=== PATIENT | female | born 1995 ===

== ENCOUNTER 2018-05-19 21:00 | Emergency (ER) | payer MEDICAID, OTHER ==
[2018-05-19 22:33] VITALS: TEMP 98.1
--- NOTE | 2018-05-19 23:00 | ED PDOC ---
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 Pt. stated that she feels the suprapubic cramp on and off, had dysuria with white discharge, no fever or chills, no flank pain, no fever or chills, no numbness or tingling, no other medical or psychological complaints. <Rahul Kim - Last Filed: 05/20/18 00:02> <Dakota Sprague - Last Filed: 05/20/18 00:16> - General Chief Complaint: Abdominal Pain Time Seen by Provider: 05/19/18 21:04 Past Medical History - Provider Review Nursing Documentation Reviewed: Yes - Psychiatric Hx Substance Use: No - Anesthesia Hx Anesthesia: No Hx Anesthesia Reactions: No Hx Malignant Hyperthermia: No <Rahul Kim - Last Filed: 05/20/18 00:02> Family/Social History - Physician Review Nursing Documentation Reviewed: Yes Family/Social History: Unknown Family HX Smoking Status: Never Smoked Hx Alcohol Use: No Hx Substance Use: No <Rahul Kim - Last Filed: 05/20/18 00:02> Allergies/Home Meds <Rahul Kim - Last Filed: 05/20/18 00:02> <Dakota Sprague - Last Filed: 05/20/18 00:16> Allergies/Adverse Reactions: Allergies No Known Allergies Allergy (Verified 05/19/18 22:19) Review of Systems - Review of Systems Constitutional: absent: Fatigue, Fevers Eyes: absent: Vision Changes ENT: absent: Hearing Changes Respiratory: absent: SOB, Cough Cardiovascular: absent: Chest Pain Gastrointestinal: absent: Abdominal Pain, Constipation, Diarrhea, Nausea, Vomiting Genitourinary Female: Dysuria, Vaginal Discharge Musculoskeletal: absent: Arthralgias, Back Pain Skin: absent: Rash, Pruritis Psychiatric: absent: Anxiety, Depression, Suicidal Ideation <Rahul Kim - Last Filed: 05/20/18 00:02> Physical Exam Vital Signs Reviewed: Yes Vital Signs Temp Pulse Resp BP Pulse Ox 05/19/18 22:32 98.1 F 80 20 116/67 99 Temperature: Afebrile Blood Pressure: Normal Pulse: Regular Respiratory Rate: Normal Appearance: Positive for: Well-Appearing, Non-Toxic, Comfortable Pain Distress: None Mental Status: Positive for: Alert and Oriented X 3 - Systems Exam Head: Present: Atraumatic, Normocephalic Pupils: Present: PERRL Extroacular Muscles: Present: EOMI Conjunctiva: Present: Normal Mouth: Present: Moist Mucous Membranes Neck: Present: Normal Range of Motion Respiratory/Chest: Present: Clear to Auscultation, Good Air Exchange. No: Respiratory Distress, Accessory Muscle Use Cardiovascular: Present: Regular Rate and Rhythm, Normal S1, S2. 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 No: Vaginal Bleeding, Vaginal Lesions, Adenexal Tenderness, Adenexal Mass, Cervical Motion Tendernes, Odor Back: Present: Normal Inspection. No: CVA Tenderness, Midline Tenderness, Paraspinal Tenderness, Pain with Leg Raise, Decubitus Ulcer Upper Extremity: Present: Normal Inspection. No: Cyanosis, Edema Lower Extremity: Present: Normal Inspection. No: Edema Neurological: Present: GCS=15, CN II-XII Intact, Speech Normal, Motor Func Grossly Intact, Gait Normal, Memory Normal Skin: Present: Warm, Dry, Normal Color. No: Rashes Psychiatric: Present: Alert, Oriented x 3, Normal Insight, Normal Concentration <Rahul Kim - Last Filed: 05/20/18 00:02> Vital Signs Temp Pulse Resp BP Pulse Ox 05/19/18 22:32 98.1 F 80 20 116/67 99 <Dakota Sprague - Last Filed: 05/20/18 00:16> Medical Decision Making ED Course and Treatment: 05/19/18 23:06 -poc -UA -Observe and reassess 05/19/18 23:56 -Urine hcg is negative -UA show no UTI -Pt. stated that she doesn't have STD, refused prophylatic or STD treatment for gonorrhea/chlyamdydia and refused STD test as well. -Diflucan ordered -Pt. has no pain now -Discharge home with education on followup with your own pmd and obgyn within 2 days, return to the ER for any new or worsening signs or symptoms. <Rahul Kim - Last Filed: 05/20/18 00:02> - Lab Interpretations Lab Results: Lab Results 05/19/18 11:25: Urine Color Yellow, Urine Appearance Clear, Urine pH 6.5, Ur Specific [place] 1.010, Urine Protein Negative, Urine Glucose (UA) Negative, Urine Ketones Negative, Urine Blood Negative, Urine Nitrate Negative, Urine Bilirubin Negative, Urine Urobilinogen 0.2, Ur Leukocyte Esterase Negative - Medication Orders Current Medication Orders: Discontinued Medications Fluconazole (Diflucan) 150 mg PO STAT STA; Protocol Stop: 05/19/18 23:56 <Dakota Sprague - Last Filed: 05/20/18 00:16> - PA / DIE CUTTER APPRENTICE / Resident Statement CHRIS has reviewed & agrees with the documentation as recorded. <Rahul Kim - Last Filed: 05/20/18 00:02> - PA / DIE CUTTER APPRENTICE / Resident Statement CHRIS has reviewed & agrees with the documentation as recorded. <Dakota Sprague - Last Filed: 05/20/18 00:16> Disposition/Present on Arrival - Present on Arrival Any Indicators Present on Arrival: No History of DVT/PE: No History of Uncontrolled Diabetes: No Urinary Catheter: No History of Decub. Ulcer: No History Surgical Site Infection Following: None - Disposition Have Diagnosis and Disposition been Completed?: Yes Disposition Time: 23:56 Patient Plan: Discharge <Rahul Kim - Last Filed: 05/20/18 00:02> <Dakota Sprague - Last Filed: 05/20/18 00:16> - Disposition Diagnosis: Vaginal candidiasis Disposition: HOME/ ROUTINE Patient Problems: Current Active Problems Problem Status Onset Vaginal candidiasis Acute Condition: GOOD Additional Instructions: -Discharge home with education on followup with your own pmd and obgyn within 2 days, return to the ER for any new or worsening signs or symptoms. Referrals: PCP,NO [Primary Care Provider] - Follow up with primary Chas Armstrong [Medical Doctor] - Follow up with primary Forms: [employer] ([place]), WORK NOTE
[2018-05-19 23:39] LABS: PH,URINE 6.5 (4.7-8.0); URINE APPEARANCE CLEAR (CLEAR); URINE BILIRUBIN NEGATIVE (NEGATIVE); URINE BLOOD NEGATIVE (NEGATIVE); URINE COLOR YELLOW (YELLOW); URINE GLUCOSE (UA) NEGATIVE (NEGATIVE); URINE LEUKOCYTE ESTERASE NEGATIVE Leu/uL (NEGATIVE); URINE PROTEIN NEGATIVE mg/dL (<30 mg/dL); URINE UROBILINOGEN 0.2 E.U./dL (<1 E.U./dL)
[2018-05-20 00:30] VITALS: BP 115/68; PULSE 78; RESP 18; O2SAT 100
== END 2018-05-20 00:31 | disposition home or self-care (01) ==
LOC: ED 21:00
DX: B37.3 Candidiasis of vulva and vagina (principal)

== ENCOUNTER 2018-05-21 18:12 | Emergency (ER) | payer MEDICAID, OTHER ==
[2018-05-22 05:39] VITALS: BMI 26.2
== END 2018-05-21 18:43 | disposition left against medical advice (07) ==
LOC: ED 18:12
DX: Z02.89 Encounter for other administrative examinations (principal); R10.30 Lower abdominal pain, unspecified

== ENCOUNTER 2018-05-21 23:09 | Observation (INO) | payer MEDICAID, OTHER ==
--- NOTE | 2018-05-22 01:31 | ED PDOC ---
Arrival/HPI - General Historian: Patient - History of Present Illness Narrative History of Present Illness (Text): 05/22/18 01:26 23 year old female, with no significant past medical history, presents to the emergency department with suprapubic RLQ pain, since Monday. Patient was seen in the emergency department 2 days ago for symptoms and for thick white vaginal discharge. Patient was discharged with diflucan for yeast infection. Patient states today the pain became worse, and painful when walking. Patient also states she had some nausea and vomiting today. Patient denies any recent sexual activity. Patient also denies any dysuria, fevers, anorexia, vaginal bleeding, or any other complaints. Time/Duration: < week (4 days) Symptom Onset: Gradual Symptom Course: Worsening <Marichuy Lopez PA-C - Last Filed: 05/22/18 01:26> <Dakota Sprague - Last Filed: 05/22/18 05:30> - General Chief Complaint: Abdominal Pain Time Seen by Provider: 05/21/18 23:50 Past Medical History - Provider Review Nursing Documentation Reviewed: Yes - Psychiatric Hx Substance Use: No - Anesthesia Hx Anesthesia: No Hx Anesthesia Reactions: No Hx Malignant Hyperthermia: No <Marichuy Lopez PA-C - Last Filed: 05/22/18 01:26> Family/Social History - Physician Review Nursing Documentation Reviewed: Yes Family/Social History: No Known Family HX Smoking Status: Never Smoked Hx Alcohol Use: No Hx Substance Use: No <Marichuy Lopez PA-C - Last Filed: 05/22/18 01:26> Allergies/Home Meds <Marichuy Lopez PA-C - Last Filed: 05/22/18 01:26> <Dakota Sprague - Last Filed: 05/22/18 05:30> Allergies/Adverse Reactions: Allergies No Known Allergies Allergy (Verified 05/21/18 23:41) Home Medications: Home Meds Medication Instructions Recorded Confirmed RX: No Known Home Med 05/22/18 05/22/18 Review of Systems - Physician Review All systems were reviewed & negative as marked: Yes - Review of Systems Constitutional: absent: Fevers Gastrointestinal: Abdominal Pain, Nausea, Vomiting. absent: Anorexia Genitourinary Female: Vaginal Discharge. absent: Dysuria, Vaginal Bleeding <Marichuy Lopez PA-C - Last Filed: 05/22/18 01:26> Physical Exam Vital Signs Reviewed: Yes Vital Signs Temp Pulse Resp BP Pulse Ox 05/22/18 00:45 97.7 F 74 17 120/50 L 100 Temperature: Afebrile Blood Pressure: Hypotensive Pulse: Regular Respiratory Rate: Normal Appearance: Positive for: Well-Appearing, Non-Toxic, Comfortable Pain Distress: None Mental Status: Positive for: Alert and Oriented X 3 - Systems Exam Head: Present: Atraumatic, Normocephalic Pupils: Present: PERRL Extroacular Muscles: Present: EOMI Conjunctiva: Present: Normal Mouth: Present: Moist Mucous Membranes Neck: Present: Normal Range of Motion Respiratory/Chest: Present: Clear to Auscultation, Good Air Exchange. No: Respiratory Distress, Accessory Muscle Use Cardiovascular: Present: Regular Rate and Rhythm, Normal S1, S2. No: Murmurs Abdomen: Present: Tenderness (Mild lower abdominal tenderness). No: Distention, Peritoneal Signs, Guarding, McBurney's Point Tender, Rovsing's Sign Present Back: Present: Normal Inspection Upper Extremity: Present: Normal Inspection. No: Cyanosis, Edema Lower Extremity: Present: Normal Inspection. No: Edema Neurological: Present: GCS=15, CN II-XII Intact, Speech Normal Skin: Present: Warm, Dry, Normal Color. No: Rashes Psychiatric: Present: Alert, Oriented x 3, Normal Insight, Normal Concentration <Marichuy Lopez PA-C - Last Filed: 05/22/18 01:26> Vital Signs Temp Pulse Resp BP Pulse Ox 05/22/18 00:45 97.7 F 74 17 120/50 L 100 <Dakota Sprague - Last Filed: 05/22/18 05:30> Medical Decision Making ED Course and Treatment: 05/22/18 01:35 Impression: 23 year old female presents with lower abdominal pain and vaginal discharge. Plan: -- CT ABD & Pelvis -- CMP, Lipase, Mg -- CBC -- Chlamydia testing -- Toradol -- Urine culture -- Urinalysis -- Reassess and disposition Prior Visits: Notes and results from previous visits were reviewed. Patient had a pelvic exam on Monday05/19/18 and was diagnosed with vaginal candidiasis. Patient had refused any urine STD testing Progress Notes: - RAD Interpretation Radiology Orders: 05/22/18 00:48 ABD & PELVIS IV CONTRAST ONLY [CT] Stat - Medication Orders Current Medication Orders: Discontinued Medications Ketorolac Tromethamine (Toradol) 30 mg IVP STAT STA Stop: 05/22/18 00:47 <Marichuy Lopez PA-C - Last Filed: 05/22/18 01:26> ED Course and Treatment: 05/22/18 03:53 Patient was reexamined with localized tenderness to the RLQ persistently. CT study consistent with appendicolith although no inflammatory changes. Patient, however,given persistent localized tenderness will need further evaluation for possibly early appendicitis. vice president of instruction to evaluate. vice president safety was spoken to. House doctor, Dr. Huerta, was spoken to, accepts patient to the hospitalist service at this time. - Lab Interpretations Lab Results: 05/22/18 01:34 05/22/18 01:34 Lab Results 05/22/18 01:34: Sodium 139, Potassium 4.5, Chloride 103, Carbon Dioxide 30, Anion Gap 10, BUN 14, Creatinine 0.6 L, Est GFR ( Amer) > 60, Est GFR (Non-Af Amer) > 60, Random Glucose 109, Calcium 9.2, Magnesium 2.0, Total Bilirubin 0.3, AST 19, ALT 28, Alkaline Phosphatase 92, Total Protein 7.4, Albumin 4.2, Globulin 3.3, Albumin/Globulin Ratio 1.3, Lipase 30 05/22/18 01:34: PT 11.6, INR 1.02, APTT 30.2 05/22/18 01:34: WBC 8.6, RBC 4.03, Hgb 11.8 L, Hct 36.5, MCV 90.6, MCH 29.3, MCHC 32.3, RDW 12.9, Plt Count 255, MPV 9.9, Gran % 60.5, Lymph % (Auto) 31.9, [place] % (Auto) 6.0, Eos % (Auto) 1.3 L, Baso % (Auto) 0.3, Gran # 5.20, Lymph # (Auto) 2.8, [place] # (Auto) 0.5, Eos # (Auto) 0.1, Baso # (Auto) 0.03 05/22/18 00:50: Urine Color Yellow, Urine Appearance Clear, Urine pH 6.5, Ur Specific [place] 1.020, Urine Protein Negative, Urine Glucose (UA) Negative, Urine Ketones Negative, Urine Blood Negative, Urine Nitrate Negative, Urine Bilirubin Negative, Urine Urobilinogen 0.2, Ur Leukocyte Esterase Negative - RAD Interpretation Radiology Orders: 05/22/18 00:48 ABD & PELVIS IV CONTRAST ONLY [CT] Stat - Medication Orders Current Medication Orders: Discontinued Medications Ketorolac Tromethamine (Toradol) 30 mg IVP STAT STA Stop: 05/22/18 00:47 Last Admin: 05/22/18 01:35 Dose: 30 mg MAR Pain Assessment Document 05/22/18 01:35 OCS (Rec: 05/22/18 01:36 OCS [facility]) Pain Reassessment Is this a pain reassessment? No Sleep Is patient sleeping during reassessment? No Presence of Pain Presence of Pain Yes Pain Scale Used Protocol: PSCALES Pain Scale Used Numeric Location Left, Right or Bilateral Bilateral Upper or Lower Lower Pain Location Body Site Abdomen Back Description Description Constant Intensity of Pain at present 10 Pain Behavior Facial Grimacing Aggravating Factors ADL's IVP Administration Document 05/22/18 01:35 OCS (Rec: 05/22/18 01:36 OCS [facility]) Charges for Administration # of IVP Administrations 1 <Dakota Sprague - Last Filed: 05/22/18 05:30> - Scribe Statement The provider has reviewed the documentation as recorded by the Miguel Olivo Provider Scribe Attestation: All medical record entries made by the Scribkevin were at my direction and personally dictated by me. I have reviewed the chart and agree that the record accurately reflects my personal performance of the history, physical exam, medical decision making, and the department course for this patient. I have also personally directed, reviewed, and agree with the discharge instructions and d isposition. <Marichuy Lopez PA-C - Last Filed: 05/22/18 01:26> Disposition/Present on Arrival - Present on Arrival History of DVT/PE: No History of Uncontrolled Diabetes: No Urinary Catheter: No History of Decub. Ulcer: No History Surgical Site Infection Following: None <Marichuy Lopez PA-C - Last Filed: 05/22/18 01:26> - Present on Arrival Any Indicators Present on Arrival: No History of DVT/PE: No History of Uncontrolled Diabetes: No Urinary Catheter: No History of Decub. Ulcer: No History Surgical Site Infection Following: None - Disposition Have Diagnosis and Disposition been Completed?: Yes Disposition Time: 03:50 <Dakota Sprague - Last Filed: 05/22/18 05:30> - Disposition Diagnosis: RLQ abdominal pain Disposition: HOSPITALIZED Patient Problems: Current Active Problems Problem Status Onset RLQ abdominal pain Acute Condition: STABLE
[2018-05-22 01:57] LABS: BASO # 0.03 K/mm3 (0.0-2.0); BASO % 0.3 % (0.0-3.0); EOS # 0.1 (0.0-0.7); EOS % 1.3 % (1.5-5.0); GRAN # 5.2 (1.4-6.5); GRAN % 60.5 % (50.0-68.0); HEMOGLOBIN 11.8 g/dL (12.0-16.0); LYMPH # 2.8 (1.2-3.4); LYMPH % 31.9 % (22.0-35.0); MEAN CELL VOLUME 90.6 fl (80.0-105.0); MEAN CORPUSCULAR HEMOGLOBIN 29.3 pg (25.0-35.0); MEAN CORPUSCULAR HGB CONC 32.3 g/dl (31.0-37.0); MEAN PLATELET VOLUME 9.9 fl (7.0-11.0); MONO # 0.5 (0.1-0.6); RBC 4.03 10^6/uL (3.5-6.1); RED CELL DISTRIBUTION WIDTH 12.9 % (11.5-14.5); WHITE BLOOD COUNT 8.6 10^3/uL (4.5-11.0)
[2018-05-22 01:57] LABS: PH,URINE 6.5 (4.7-8.0); URINE BILIRUBIN NEGATIVE (NEGATIVE); URINE BLOOD NEGATIVE (NEGATIVE); URINE GLUCOSE (UA) NEGATIVE (NEGATIVE); URINE LEUKOCYTE ESTERASE NEGATIVE Leu/uL (NEGATIVE); URINE PROTEIN NEGATIVE mg/dL (<30 mg/dL); URINE UROBILINOGEN 0.2 E.U./dL (<1 E.U./dL)
[2018-05-22 02:00] LABS: URINE APPEARANCE CLEAR (CLEAR); URINE COLOR YELLOW (YELLOW)
[2018-05-22 02:03] LABS: INR 1.02; PARTIAL THROMBOPLASTIN TIME 30.2 Seconds (25.1-36.5); PROTHROMBIN TIME 11.6 SECONDS (9.4-12.5)
[2018-05-22 02:06] LABS: ALB/GLOB RATIO 1.3 (1.1-1.8); ALBUMIN 4.2 g/dL (3.0-4.8); ALT/SGPT 28 U/L (7-56); AST/SGOT 19 U/L (14-36); BLOOD UREA NITROGEN 14 mg/dL (7-21); CALCIUM 9.2 mg/dL (8.4-10.5); GFR NON-AFRICAN AMERICAN > 60; LIPASE 30 U/L (23-300)
[2018-05-22] MEDS ORDERED: Iohexol 350 MG/100 ML VIAL ONE (02:16)
--- NOTE | 2018-05-22 04:51 | CP.PCM.HP ---
<NagiArabella logan - Last Filed: 05/22/18 05:18> History of Present Illness - History of Present Illness History of Present Illness: Arabella Lazar PGY-1 Medicine H&P Note for Dr. Huerta: CC: RLQ abd pain Pt is a 23 yo F with no significant pmhx who presents to the ED for RLQ abd pain. Pt states that she started noticing this pain on monday and it was associated with a heavy white vaginal discharge. She presented to the ED 2 days ago and she was treated with diflucan and d/thompson. Pt states that after being treated the pain worsened so she returned to the ED. Pt also reports that this AM she had an episode of non-bloody non-billious vomiting. She states that she continues to be nauseous and has no appetite at this time. Pt reports that her pain is rated 8/10 in intensity and localizes the pain to the suprapubic region of her abdomen. She states that this pain is similar to an infection that she had 7 years ago that her and her partner were both treated for simultaneously. She reports that she does have pubic pain when she is ambulating and that the pain radiates down to her groin. At this time she denies fevers, chills, headaches, lightheadedness, dizziness, chest pain, palpitations, SOB, cough, wheezing, flank pain, constipation, diarrhea dysuria, hematuria or frequency. She only admits to suprapubic abdominal pain, and nausea, vomiting. Pmhx: Denies Pshx: Denies Meds: Denies All: NKDA Social: Denies any smoking hx, etoh or illicit drug use Fam Hx: Maternal grandmother: Uterine ca PMD: None Pharm: None Present on Admission - Present on Admission Any Indicators Present on Admission: No Review of Systems - Review of Systems Review of Systems: 12 point ROS is reviewed and negative except where noted in HPI above. Past Patient History - Past Social History Smoking Status: Never Smoked - PSYCHIATRIC Hx Substance Use: No - SURGICAL HISTORY Hx Surgeries: No - ANESTHESIA Hx Anesthesia: No Hx Anesthesia Reactions: No Hx Malignant Hyperthermia: No Meds Allergies/Adverse Reactions: Allergies Allergy/AdvReac Type Severity Reaction Status Date / Time No Known Allergies Allergy Verified 05/21/18 23:41 Physical Exam - Constitutional Appears: Well, Non-toxic, No Acute Distress, Other (uncomfortable) - Head Exam Head Exam: ATRAUMATIC, NORMAL INSPECTION, NORMOCEPHALIC - Eye Exam Eye Exam: EOMI, Normal appearance, PERRL - Respiratory Exam Respiratory Exam: Clear to Auscultation Bilateral, NORMAL BREATHING PATTERN. absent: Accessory Muscle Use, Decreased Breath Sounds, Rales, Rhonchi, Wheezes, Respiratory Distress, Stridor - Cardiovascular Exam Cardiovascular Exam: RRR, +S1, +S2. absent: Gallop, Rubs, Systolic Murmur - GI/Abdominal Exam GI & Abdominal Exam: Normal Bowel Sounds, Soft, Tenderness (present in the suprapubic region of the abdomen, there is negative mcburneys point, negative psoas sign, negative rovsings sign on exam. ). absent: Distended, Firm, Guarding, Hernia - Extremities Exam Extremities exam: Positive for: normal capillary refill, normal inspection, pedal pulses present. Negative for: pedal edema, tenderness - Back Exam Back exam: NORMAL INSPECTION. absent: CVA tenderness (L), CVA tenderness (R) - Neurological Exam Neurological exam: Alert, Oriented x3 - Psychiatric Exam Psychiatric exam: Normal Affect, Normal Mood - Skin Skin Exam: Dry, Normal Color, Warm Results - Vital Signs Recent Vital Signs: Last Vital Signs Temp 97.7 F 05/22/18 00:45 Pulse 84 05/22/18 04:37 Resp 18 05/22/18 04:37 BP 107/66 05/22/18 04:37 Pulse Ox 100 05/22/18 04:37 - Labs Result Diagrams: 05/22/18 01:34 05/22/18 01:34 Labs: Laboratory Results - last 24 hr 05/22/18 05/22/18 05/22/18 00:50 01:34 01:34 WBC 8.6 RBC 4.03 Hgb 11.8 L Hct 36.5 MCV 90.6 MCH 29.3 MCHC 32.3 RDW 12.9 Plt Count 255 MPV 9.9 Gran % 60.5 Lymph % (Auto) 31.9 [place] % (Auto) 6.0 Eos % (Auto) 1.3 L Baso % (Auto) 0.3 Gran # 5.20 Lymph # (Auto) 2.8 [place] # (Auto) 0.5 Eos # (Auto) 0.1 Baso # (Auto) 0.03 PT 11.6 INR 1.02 APTT 30.2 Sodium Potassium Chloride Carbon Dioxide Anion Gap BUN Creatinine Est GFR ( Amer) Est GFR (Non-Af Amer) Random Glucose Calcium Magnesium Total Bilirubin AST ALT Alkaline Phosphatase Total Protein Albumin Globulin Albumin/Globulin Ratio Lipase Urine Color Yellow Urine Appearance Clear Urine pH 6.5 Ur Specific [place] 1.020 Urine Protein Negative Urine Glucose (UA) Negative Urine Ketones Negative Urine Blood Negative Urine Nitrate Negative Urine Bilirubin Negative Urine Urobilinogen 0.2 Ur Leukocyte Esterase Negative 05/22/18 01:34 WBC RBC Hgb Hct MCV MCH MCHC RDW Plt Count MPV Gran % Lymph % (Auto) [place] % (Auto) Eos % (Auto) Baso % (Auto) Gran # Lymph # (Auto) [place] # (Auto) Eos # (Auto) Baso # (Auto) PT INR APTT Sodium 139 Potassium 4.5 Chloride 103 Carbon Dioxide 30 Anion Gap 10 BUN 14 Creatinine 0.6 L Est GFR ( Amer) > 60 Est GFR (Non-Af Amer) > 60 Random Glucose 109 Calcium 9.2 Magnesium 2.0 Total Bilirubin 0.3 AST 19 ALT 28 Alkaline Phosphatase 92 Total Protein 7.4 Albumin 4.2 Globulin 3.3 Albumin/Globulin Ratio 1.3 Lipase 30 Urine Color Urine Appearance Urine pH Ur Specific [place] Urine Protein Urine Glucose (UA) Urine Ketones Urine Blood Urine Nitrate Urine Bilirubin Urine Urobilinogen Ur Leukocyte Esterase Assessment & Plan - Assessment and Plan (Free Text) Assessment: Pt is a 23 yo F with no significant pmhx who presents to the ED for RLQ abd pain. Pts CT abd/pelvis prelim read showed possible apopendicolith, but without any inflammatory changes, f/u official read. Plan: 1. RLQ pain of unknown etiology: - Likely 2/2 recent vaginal candidiasis infection and pt has ruptured follicle on CT imaging. - CT abd/ pelvis was read as appendicolith without signs of inflammatory changes - IVF NS @ 150/hr - NPO - Rocephin - Flagyl - f/u official read of CT abd/pelvis in AM - Zofran PRN 2. Pelvic pain: - Pelvis u/s - Vaginal u/s - CHAPERON consult - IVF - Pt has already recieved diflucan on ED visit 2 days prior 3. PPX: GI: Protonix DVT: SCDs Case seen and discussed with Dr. Bradley Lazar PGY-1 <Breanne Huerta - Last Filed: 05/23/18 06:36> Results - Vital Signs Recent Vital Signs: Last Vital Signs Temp 97.8 F 05/22/18 18:00 Pulse 99 H 05/22/18 18:00 Resp 20 05/22/18 18:00 BP 101/64 05/22/18 18:00 Pulse Ox 97 05/22/18 18:00 - Labs Result Diagrams: 05/22/18 01:34 05/22/18 01:34 Attending/Attestation - Attestation I have personally seen and examined this patient.: Yes I have fully participated in the care of the patient.: Yes I have reviewed all pertinent clinical information: Yes
[2018-05-22] MEDS ORDERED: Sodium Chloride 0.9% 1,000 ML IV SCH ×2 (05:15)
[2018-05-22 05:39] VITALS: RESP 20; BMI 26.2
[2018-05-22 05:50] VITALS: TEMP 97.8
[2018-05-22] MEDS ORDERED: metroNIDAZOLE IV 500 mg/100 ml 500 MG/100 ML BAG IVPB SCH (06:00)
[2018-05-22] MEDS ORDERED: Pantoprazole 40 mg EC Tab PO SCH (06:00)
[2018-05-22] MEDS ORDERED: cefTRIAXone 1 gm 1 GM/100 ML BAG IVPB SCH (10:00)
--- NOTE | 2018-05-22 10:50 | CT ---
Date of service: 05/22/2018 PROCEDURE: CT Abdomen and Pelvis with contrast HISTORY: RLQ pain COMPARISON: None. TECHNIQUE: Following the intravenous administration of iodinated contrast material, a CT examination of the abdomen and pelvis performed from the domes of the diaphragms to the symphysis pubis with reformatted datasets provided in axial, sagittal and coronal planes. Oral contrast was not administered as per referring physician request. Coronal and sagittal reformats were generated. Contrast dose: Omnipaque 350, 100 cc Radiation dose: Total exam DLP = 334.43 mGy-cm. This CT exam was performed using one or more of the following dose reduction techniques: Automated exposure control, adjustment of the mA and/or kV according to patient size, and/or use of iterative reconstruction technique. FINDINGS: LOWER THORAX: Bilateral basilar dependent atelectasis identified with lung bases otherwise clear. The abdomen, LIVER: Unremarkable. No gross lesion or ductal dilatation. GALLBLADDER AND BILE DUCTS: Unremarkable. PANCREAS: Unremarkable. No gross lesion or ductal dilatation. SPLEEN: Unremarkable. ADRENALS: Unremarkable. No mass. KIDNEYS AND URETERS: Unremarkable. No hydronephrosis. No solid mass. VASCULATURE: Unremarkable. No aortic aneurysm. No aortic atherosclerotic calcification or mural plaque present. BOWEL: Moderate fecal loading is scattered throughout the large bowel which is otherwise unremarkable appearing. No obstruction. No gross mural thickening. APPENDIX: Normal appendix. PERITONEUM: Unremarkable. No free fluid. No free air. LYMPH NODES: Unremarkable. No enlarged lymph nodes. BLADDER: The urinary bladder is not fully distended and evaluation the wall is suboptimal. Mild thickening urine bladder wall is not completely excluded. REPRODUCTIVE: Collapsing cyst is appreciate the left adnexal compartment measuring 1.8 cm greatest dimension with right adnexal compartment unremarkable. BONES: No acute fracture. OTHER FINDINGS: None. IMPRESSION: 1. No CT evidence of appendicitis. No bowel obstruction, mesenteric edema, ascites or free intra peritoneal gas collection. No colonic diverticular changes. 2. Moderate fecal loading is scattered throughout the large bowel. 3. Collapsing cyst left adnexal compartment 1.8 cm greatest dimension with right adnexal compartment unremarkable. 4. Borderline thickening urinary bladder wall. Bladder otherwise unremarkable. Concordant preliminary report from [employer], 05/22/2018 2:52 a.m..
--- NOTE | 2018-05-22 14:47 | US ---
Date of service: 05/22/2018 HISTORY: Suprapubic tenderness COMPARISON: Abdomen pelvis CT with contrast 05/22/2018. TECHNIQUE: Transabdominal and transvaginal pelvic ultrasound was performed with longitudinal and transverse images submitted for interpretation. FINDINGS: UTERUS: Measures 10.6 x 4.0 x 4.8 cm. Normal in size and appearance. No fibroid or other mass lesion seen. ENDOMETRIUM: Measures 17.0 mm in diameter. Nonfocal homogeneous but prominent endometrium identified. CERVIX: No cervical abnormality identified. RIGHT OVARY: Measures 3.5 x 3.4 x 2.3 cm. No solid mass. Normal flow. Multiple small follicles identified under 1 cm size. LEFT OVARY: Measures 3.5 x 4.1 x 2.1 cm. No solid mass. Normal flow. Additional follicles identified scattered at the left ovary with a collapsing cyst identified at the left ovary measuring 1.[address] finding. FREE FLUID: No significant free fluid noted. OTHER FINDINGS: None. IMPRESSION: Nonfocal but prominent endometrium up to 17 mm thickness. Uterus is otherwise unremarkable. No suspicious adnexal findings although collapsing cyst is seen at the left follicle 1.7 cm greatest dimension corresponding to CT finding.
--- NOTE | 2018-05-22 14:59 | CP.PCM.DIS ---
<Nino Noe - Last Filed: 05/22/18 15:23> Provider - Provider Date of Admission: 05/22/18 03:49 Attending physician: Caron Jones DO Primary care physician: NO PRIMARY CARE PROVIDER Consults: 05/22/18 05:07 Physician Consult Routine Comment: Consulting Provider: Arlette Herrera Consulting Physician: Arlette Herrera Reason for Consult: Suprapubic tenderness, worsening after tx with diflucan Time Spent in preparation of Discharge (in minutes): 45 Diagnosis - Discharge Diagnosis (1) Vaginal candidiasis Status: Acute (2) Rupture of follicular cyst of ovary Status: Acute Hospital Course - Lab Results Lab Results: Most Recent Lab Values WBC 8.6 10^3/uL (4.5-11.0) 05/22/18 01:34 RBC 4.03 10^6/uL (3.5-6.1) 05/22/18 01:34 Hgb 11.8 g/dL (12.0-16.0) L 05/22/18 01:34 Hct 36.5 % (36.0-48.0) 05/22/18 01:34 MCV 90.6 fl (80.0-105.0) 05/22/18 01:34 MCH 29.3 pg (25.0-35.0) 05/22/18 01:34 MCHC 32.3 g/dl (31.0-37.0) 05/22/18 01:34 RDW 12.9 % (11.5-14.5) 05/22/18 01:34 Plt Count 255 10^3/uL (120.0-450.0) 05/22/18 01:34 MPV 9.9 fl (7.0-11.0) 05/22/18 01:34 Gran % 60.5 % (50.0-68.0) 05/22/18 01:34 Lymph % (Auto) 31.9 % (22.0-35.0) 05/22/18 01:34 Summers % (Auto) 6.0 % (1.0-6.0) 05/22/18 01:34 Eos % (Auto) 1.3 % (1.5-5.0) L 05/22/18 01:34 Baso % (Auto) 0.3 % (0.0-3.0) 05/22/18 01:34 Gran # 5.20 (1.4-6.5) 05/22/18 01:34 Lymph # (Auto) 2.8 (1.2-3.4) 05/22/18 01:34 Summers # (Auto) 0.5 (0.1-0.6) 05/22/18 01:34 Eos # (Auto) 0.1 (0.0-0.7) 05/22/18 01:34 Baso # (Auto) 0.03 K/mm3 (0.0-2.0) 05/22/18 01:34 PT 11.6 SECONDS (9.4-12.5) 05/22/18 01:34 INR 1.02 05/22/18 01:34 APTT 30.2 Seconds (25.1-36.5) 05/22/18 01:34 Sodium 139 mmol/L (132-148) 05/22/18 01:34 Potassium 4.5 mmol/L (3.6-5.0) 05/22/18 01:34 Chloride 103 mmol/L (98-107) 05/22/18 01:34 Carbon Dioxide 30 mmol/L (21-33) 05/22/18 01:34 Anion Gap 10 (10-20) 05/22/18 01:34 BUN 14 mg/dL (7-21) 05/22/18 01:34 Creatinine 0.6 mg/dl (0.7-1.2) L 05/22/18 01:34 Est GFR ( Amer) > 60 05/22/18 01:34 Est GFR (Non-Af Amer) > 60 05/22/18 01:34 Random Glucose 109 mg/dL (70-110) 05/22/18 01:34 Calcium 9.2 mg/dL (8.4-10.5) 05/22/18 01:34 Magnesium 2.0 mg/dL (1.7-2.2) 05/22/18 01:34 Total Bilirubin 0.3 mg/dL (0.2-1.3) 05/22/18 01:34 AST 19 U/L (14-36) 05/22/18 01:34 ALT 28 U/L (7-56) 05/22/18 01:34 Alkaline Phosphatase 92 U/L (38-126) 05/22/18 01:34 Total Protein 7.4 g/dL (5.8-8.3) 05/22/18 01:34 Albumin 4.2 g/dL (3.0-4.8) 05/22/18 01:34 Globulin 3.3 gm/dL 05/22/18 01:34 Albumin/Globulin Ratio 1.3 (1.1-1.8) 05/22/18 01:34 Lipase 30 U/L (23-300) 05/22/18 01:34 Urine Color Yellow (YELLOW) 05/22/18 00:50 Urine Appearance Clear (CLEAR) 05/22/18 00:50 Urine pH 6.5 (4.7-8.0) 05/22/18 00:50 Ur Specific Waldron 1.020 (1.005-1.035) 05/22/18 00:50 Urine Protein Negative mg/dL (<30 mg/dL) 05/22/18 00:50 Urine Glucose (UA) Negative mg/dL (NEGATIVE) 05/22/18 00:50 Urine Ketones Negative mg/dL (NEGATIVE) 05/22/18 00:50 Urine Blood Negative (NEGATIVE) 05/22/18 00:50 Urine Nitrate Negative (NEGATIVE) 05/22/18 00:50 Urine Bilirubin Negative (NEGATIVE) 05/22/18 00:50 Urine Urobilinogen 0.2 E.U./dL (<1 E.U./dL) 05/22/18 00:50 Ur Leukocyte Esterase Negative Jorge L/uL (NEGATIVE) 05/22/18 00:50 - Hospital Course Hospital Course: HPI at time of admission: "23 yo F with no significant pmhx who presents to the ED for RLQ abd pain. Pt states that she started noticing this pain on monday and it was associated with a heavy white vaginal discharge. She presented to the ED 2 days ago and she was treated with diflucan and d/thompson. Pt states that after being treated the pain worsened so she returned to the ED. Pt also reports that this AM she had an episode of non-bloody non-billious vomiting. She states that she continues to be nauseous and has no appetite at this time. Pt reports that her pain is rated 8/1 0 in intensity and localizes the pain to the suprapubic region of her abdomen. She states that this pain is similar to an infection that she had 7 years ago that her and her partner were both treated for simultaneously. She reports that she does have pubic pain when she is ambulating and that the pain radiates down to her groin. At this time she denies fevers, chills, headaches, lightheadedness, dizziness, chest pain, palpitations, SOB, cough, wheezing, flank pain, constipation, diarrhea dysuria, hematuria or frequency. She only admits to suprapubic abdominal pain, and nausea, vomiting." Hospital course: Pt was admitted for observation of suprapubic pain and vaginal discharge. Suprapubic pain likely 2/2 yeast infection, RLQ pain likely secondary to collapsing cyst. Spoke with Dr. Herrera ([employer]) about case who agreed with current management to discharge pt home, tx for vaginal candidiasis, and have her follow-up outpatient to establish care in clinic and get Pap smear done. Discharged pt home on 05/22/18, with instructions to follow-up at [facility] to establish care and for follow-up within 3-5 days. Pt was given Monistat x 1 inpatient. Given script for Monistat to complete for next 6 days of therapy; instructed to avoid sexual intercourse until end of antifungal treatment. Pertinent imaging: CT abd/pelvis: no CT evidence of appendicitis. No bowel obstruction, mesenteric ischemia, ascites, or free intraperitoneal gas collection. No colonic diverticular changes. Moderate fecal loading scattered through large bowel. Collapsing cyst L adnexal compartment 1.8 cm greatest dimension with R adnexal compartment unremarkable. Borderline thickening urinary bladder wall. Bladder otherwise unremarkable. Transvaginal/pelvic U/s: Nonfocal but prominent endometrium up to 17 mm thickness. Uterus otherwise unremarkable. No suspicious adnexal findings although collapsing cyst seen at L follicle 1.7 cm greatest dimension correspo nding to CT finding. Discharge Exam - Head Exam Head Exam: ATRAUMATIC, NORMAL INSPECTION, NORMOCEPHALIC - Eye Exam Eye Exam: EOMI, Normal appearance, PERRL - ENT Exam ENT Exam: Mucous Membranes Moist - Respiratory Exam Respiratory Exam: Clear to PA & Lateral, NORMAL BREATHING PATTERN, UNREMARKABLE - Cardiovascular Exam Cardiovascular Exam: REGULAR RHYTHM, +S1, +S2. absent: Gallop, Rubs, Systolic Murmur - GI/Abdominal Exam GI & Abdominal Exam: Normal Bowel Sounds, Soft, Unremarkable. absent: Tenderness - Extremities Exam Extremities exam: full ROM, normal capillary refill, normal inspection, pedal pulses present - Neurological Exam Neurological exam: Alert, CN II-XII Intact, Normal Gait, Oriented x3, Reflexes Normal - Skin Skin Exam: Dry, Intact, Normal Color, Warm Discharge Plan - Discharge Medications Prescriptions: Miconazole [Miconazole 7] 100 mg VG DAILY #6 sup - Follow Up Plan Condition: STABLE Disposition: HOME/ ROUTINE Instructions: Vaginal Yeast Infection (DC) Additional Instructions: Por favor, va a la clinica de [facility] a [facility] para la beata y Papanicolaou en 3-5 robertson. Por favor llama por el telefono a la oficina para la beata. Da a prescripccion para - Monostat (for VAGINAL YEAST INFECTION), apilca en la vagina diana vez cada laverne por la proxima seis robertson. Puede sarahi Tylenol que necesita para dolor. Que tiene symptomas de regresar, por favor va a departamento de emergencia de cerca. Referrals: [facility] at [facility] [Outside] <Caron Jones - Last Filed: 05/24/18 18:35> Provider - Provider Date of Admission: 05/22/18 03:49 Attending physician: Caron Jones DO Primary care physician: JIMENA PRIMARY CARE PROVIDER Consults: 05/22/18 05:07 Physician Consult Routine Comment: Consulting Provider: Arlette Herrera Consulting Physician: Arlette Herrera Reason for Consult: Suprapubic tenderness, worsening after tx with diflucan Hospital Course - Lab Results Lab Results: Micro Results 05/22/18 00:50 Urine Urine Culture - Final No Growth (<1,000 CFU/ML) Most Recent Lab Values WBC 8.6 10^3/uL (4.5-11.0) 05/22/18 01:34 RBC 4.03 10^6/uL (3.5-6.1) 05/22/18 01:34 Hgb 11.8 g/dL (12.0-16.0) L 05/22/18 01:34 Hct 36.5 % (36.0-48.0) 05/22/18 01:34 MCV 90.6 fl (80.0-105.0) 05/22/18 01:34 MCH 29.3 pg (25.0-35.0) 05/22/18 01:34 MCHC 32.3 g/dl (31.0-37.0) 05/22/18 01:34 RDW 12.9 % (11.5-14.5) 05/22/18 01:34 Plt Count 255 10^3/uL (120.0-450.0) 05/22/18 01:34 MPV 9.9 fl (7.0-11.0) 05/22/18 01:34 Gran % 60.5 % (50.0-68.0) 05/22/18 01:34 Lymph % (Auto) 31.9 % (22.0-35.0) 05/22/18 01:34 Summers % (Auto) 6.0 % (1.0-6.0) 05/22/18 01:34 Eos % (Auto) 1.3 % (1.5-5.0) L 05/22/18 01:34 Baso % (Auto) 0.3 % (0.0-3.0) 05/22/18 01:34 Gran # 5.20 (1.4-6.5) 05/22/18 01:34 Lymph # (Auto) 2.8 (1.2-3.4) 05/22/18 01:34 Summers # (Auto) 0.5 (0.1-0.6) 05/22/18 01:34 Eos # (Auto) 0.1 (0.0-0.7) 05/22/18 01:34 Baso # (Auto) 0.03 K/mm3 (0.0-2.0) 05/22/18 01:34 PT 11.6 SECONDS (9.4-12.5) 05/22/18 01:34 INR 1.02 05/22/18 01:34 APTT 30.2 Seconds (25.1-36.5) 05/22/18 01:34 Sodium 139 mmol/L (132-148) 05/22/18 01:34 Potassium 4.5 mmol/L (3.6-5.0) 05/22/18 01:34 Chloride 103 mmol/L (98-107) 05/22/18 01:34 Carbon Dioxide 30 mmol/L (21-33) 05/22/18 01:34 Anion Gap 10 (10-20) 05/22/18 01:34 BUN 14 mg/dL (7-21) 05/22/18 01:34 Creatinine 0.6 mg/dl (0.7-1.2) L 05/22/18 01:34 Est GFR ( Amer) > 60 05/22/18 01:34 Est GFR (Non-Af Amer) > 60 05/22/18 01:34 Random Glucose 109 mg/dL (70-110) 05/22/18 01:34 Calcium 9.2 mg/dL (8.4-10.5) 05/22/18 01:34 Magnesium 2.0 mg/dL (1.7-2.2) 05/22/18 01:34 Total Bilirubin 0.3 mg/dL (0.2-1.3) 05/22/18 01:34 AST 19 U/L (14-36) 05/22/18 01:34 ALT 28 U/L (7-56) 05/22/18 01:34 Alkaline Phosphatase 92 U/L (38-126) 05/22/18 01:34 Total Protein 7.4 g/dL (5.8-8.3) 05/22/18 01:34 Albumin 4.2 g/dL (3.0-4.8) 05/22/18 01:34 Globulin 3.3 gm/dL 05/22/18 01:34 Albumin/Globulin Ratio 1.3 (1.1-1.8) 05/22/18 01:34 Lipase 30 U/L (23-300) 05/22/18 01:34 Urine Color Yellow (YELLOW) 05/22/18 00:50 Urine Appearance Clear (CLEAR) 05/22/18 00:50 Urine pH 6.5 (4.7-8.0) 05/22/18 00:50 Ur Specific Waldron 1.020 (1.005-1.035) 05/22/18 00:50 Urine Protein Negative mg/dL (<30 mg/dL) 05/22/18 00:50 Urine Glucose (UA) Negative mg/dL (NEGATIVE) 05/22/18 00:50 Urine Ketones Negative mg/dL (NEGATIVE) 05/22/18 00:50 Urine Blood Negative (NEGATIVE) 05/22/18 00:50 Urine Nitrate Negative (NEGATIVE) 05/22/18 00:50 Urine Bilirubin Negative (NEGATIVE) 05/22/18 00:50 Urine Urobilinogen 0.2 E.U./dL (<1 E.U./dL) 05/22/18 00:50 Ur Leukocyte Esterase Negative Jorge L/uL (NEGATIVE) 05/22/18 00:50 Attending/Attestation - Attestation I have personally seen and examined this patient.: Yes I have fully participated in the care of the patient.: Yes I have reviewed all pertinent clinical information, including history, physical exam and plan: Yes Notes (Text): Patient seen and examined by me with resident 10:10AM on 05/22/18. Case including discharge plan discussed with resident. Agree with above with following additions/corrections. Patient is a 23-year-old female with no significant past medical history that presented to the emergency room with right lower quadrant abdominal pain and white vaginal discharge. Please see H&P for full details. Patient was admitted with right lower quadrant pain, vaginal candidiasis, and pelvic pain. CT abdomen and pelvis per radiologist showed no CT evidence of appendicitis, no bowel extraction, mesenteric edema, ascites or free intraperitoneal gas collection, no colonic diverticular changes; moderate fecal loading scattered throughout the large bowel; collapsing cyst left adnexal co mpartment 1.8 cm greatest dimension with right adnexal compartment unremarkable; borderline thickening urinary bladder wall, bladder otherwise unremarkable. Transvaginal and pelvic ultrasound per radiologist showed nonfocal but prominent endometrium up to 17 mm thickness, uterus is otherwise unremarkable, no suspicious adnexal findings although collapsing cyst seen at the left follicle 1.7 cm greatest dimension corresponding to CT finding. She was given a dose of Rocephin and Flagyl on admission. She was given a dose of Diflucan for vaginal candidiasis. Patient was started on a 7 day course of Monistat treatment. Case was discussed in detail with quality control tester Dr. Herrera who recommended outpatient follow-up. Patient's symptoms resolved. Patient remained afebrile. No leukocytosis. She was discharged home. On day of discharge, patient stated she felt much better. Abdominal pain resolved. Vaginal discharge improved. Patient denies nausea or vomiting. Patient is tolerating diet. No diarrhea or constipation. No chest pain or shortness of breath. No headaches or dizziness. No change in vision. No fevers or chills. No dysuria. Physical exam: General: Awake and alert sitting up in bed in no acute distress HEENT: Normocephalic, atraumatic. Extraocular muscles intact, pupils equal and reactive, no scleral icterus. Oropharynx is pink moist. Neck is supple. Cardiovascular: Regular rhythm. Normal S1 and S2. No murmurs, rubs, or gallops appreciated Pulmonary: Normal respiratory effort. No rhonchi, rales, or wheezing appreciated Gastrointestinal: Soft. Nontender. Nondistended. Positive bowel sounds all 4 quadrants. No guarding. Musculoskeletal: Moves all extremities. No calf tenderness. No edema appreciated. Central nervous system: AAOx3. CN 2-12 grossly intact. Dermatologic: Skin warm and dry. Please see chart for full details. Follow up instructions: Patient to follow-up with [facility] for post hospital follow-up and a Pap smear within 3-5 days. Patient to call to make an appointment. Patient given prescription for Monistat. All instructions explained to patient in detail in [place]. Patient both understands and agrees to all instructions. Written instructions also given. Time spent in discharging the patient including chart review, medication reconciliation, discussion with the patient, medical office representative, consultants, and nursing staff was approximately 35 minutes.
[2018-05-22] MEDS ORDERED: Miconazole 100 MG Vaginal Supp VG SCH (16:00)
[2018-05-22 18:55] VITALS: BP 101/64; PULSE 99; O2SAT 97
== END 2018-05-22 20:05 | disposition home or self-care (01) ==
LOC: ED 23:09 → ERH 05-22 03:49 → 3RSO 05-22 05:08
PROVIDERS: ADMIT Hospitalist; ATTEND Hospitalist
DX: B37.3 Candidiasis of vulva and vagina (principal); N83.00 Follicular cyst of ovary, unspecified side; Z80.49 Family history of malignant neoplasm of other genital organs; R10.2 Pelvic and perineal pain
CPT/HCPCS: 74177; 76830; 76856; 80053; 81003; 83690; 83735; 85025; 85610; 85730; 87086; 87491; 87591; 96365; 96375; 99284; G0378; J1885; J7030; Q9967